=== PATIENT | born 1965 ===

== ENCOUNTER 2024-12-13 15:10 | Outpatient (AMB) | payer OTHER, SELFPAY ==
--- NOTE | 2024-12-13 15:09 | MHC.OFFVIS ---
Vital Signs 12/13/24 15:11 Height 5 ft 5 in Weight 257 lb 15.053 oz BMI 42.9 BP 130/60 Blood Pressure Location Lt brachial Position Sitting Pulse 63 Pulse Source Pulse Oximeter Pulse Oximetry (%) 93 Oxygen Delivery Method Room Air Intake Visit Reasons: Dyspnea Insole And Outsole Splitter Required: No Accompanied by: Self / Same As Patient Allergies No Known Allergies Allergy (Verified 12/13/24 15:12) HPI Comments Details: The patient is here for pulmonary evaluation. The patient overall has been doing well. She has increased cardiovascular risk factors and she was diagnosis of the apnea. The patient does have some daytime drowsiness. [place] score is elevated /. The patient did have a home sleep study which I personally reviewed demonstrating mild sleep apnea with an AHI about 9.8 events an hour. He did desaturate down to 80% and she spent about 6.5 minutes below 88%. The patient does qualify for CPAP specially with the significant cardiovascular risk factors. Although the patient is reluctant to use CPAP at this time. The patient does have also some I have diabetes and she was started on GLP 1 initially with Ozempic and now she is taking Mounjaro. She is working closely with the diet to decrease weight with the hopes that we can improve her underlying sleep apnea. I am hopeful though we can repeat an overnight oximetry in the next few months when she loses additional weight and we can see if she has any evidence of any hypoxia specially with positional therapy. The patient also is participating in the lung cancer screening program. She had a CAT scan in September 2024 and also did personally review that CAT scan and also the CAT scan from 2023 in 2022. It appears that she has some lymphadenopathy. Mediastinal lymphadenopathy both in the AP window and also in the anterior mediastinal area. Her largest lymph node in the AP window was measuring around 60 mm in size back in 2022 and now about 14 mm in size. There appears to be fairly normal in appearance. Follicles are present. No evidence of any parenchymal disease. 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 She does have a cough specially as she has got back from her trip to [place]. If her cough continues she can always call and we can do a proper allergy testing to see if this lymph nodes are reactive to something in the environment. In the meantime she will have her send repeat CAT scan in September 2025 with her low-dose CT scan that she has regularly. If she develops any constitutional symptoms she can always call we can always readdress that. The patient will have a overnight oximetry in a few months and she will follow-up in 3-4 months so we can follow-up with a review in her response to positional therapy. Depending on her response in the results we can talk about although alternative therapies. Also to note the patient did undergo pulmonary function studies that I personally reviewed she only has a very mild diffusion impairment otherwise no evidence of any obstructive nor restrictive ventilatory defects. [facility] Medical History (Updated 12/14/24 @ 22:23 by Jorge Dumont MD) Lymphadenopathy, mediastinal Pulmonary nodules ARLETTE (obstructive sleep apnea) Social History (Updated 12/13/24 @ 15:14 by Carol Lua CMA) Patient Tobacco Use Status: Former Tobacco user Review of Systems Const Reports daytime sleepiness and Reports snoring Eyes Reports no additional complaints ENT Reports nasal congestion Card Denies chest pain and Reports dyspnea on exertion Resp Reports cough, Reports dyspnea on exertion and Reports snoring GI Reports abdominal pain Musc Reports no additional complaints Skin/Breast Denies rash Neuro Reports no additional complaints Stephan/Lymph Reports no additional complaints Physical Exam Vital Signs: Last Vital Signs Pulse 63 12/13/24 15:11 BP 130/60 12/13/24 15:11 Pulse Ox 93 12/13/24 15:11 Oxygen Delivery Method Room Air 12/13/24 15:11 BMI result Body Mass Index 42.9 Const General: comfortable HEENT Head: Yes normocephalic Neck Neck: Yes supple Chest Chest palpation & inspection: normal inspection of the chest Resp Effort & Inspection: normal respiratory effort Auscultation: clear to auscultation bilaterally Cardio Heart sounds: S1 normal heart sound present and S2 normal heart sound present GI Palpation (GI): Soft to palpation Skin General skin exam: no rashes or lesions noted Extrem General: Yes no clubbing, cyanosis or edema Assessment & Plan Assessment & Plan (1) ARLETTE (obstructive sleep apnea): Code(s): G47.33 - Obstructive sleep apnea (adult) (pediatric) Category: Medical (2) Pulmonary nodules: Code(s): R91.8 - Other nonspecific abnormal finding of lung field Category: Medical (3) Lymphadenopathy, mediastinal: Code(s): R59.0 - Localized enlarged lymph nodes Category: Medical Plan Declined PAP therapy start positional therapy consider oral mandibular therapy weight management overnight oximetry in 2-3 months on RA F/U 4 months Orders: Orders Overnight Pulse Oximetry 2 Months R59.0 - Localized enlarged lymph nodes Coding Level of Care Code New Pt Level 4 (17731) Diagnoses ARLETTE (obstructive sleep apnea) G47.33 Pulmonary nodules R91.8 Lymphadenopathy, mediastinal R59.0 Time Spent (min) 40
[2024-12-13 15:11] VITALS: BP 130/60; PULSE 63; O2SAT 93; BMI 42.9
--- OUTSIDE RECORDS SUMMARY | 2024-12-13 15:13 | XMS_ITS | Clinical Summary ---
Author Organization [facility] [address] [facility] Address [address] [place] [address] Phone Care Team Providers Care Rv Mechanic Name Role Phone YassineziggyOlivia Biggs DO Primary Care Pro vider Allergies No known active allergies Medications Ozempic 0.25 mg or 0.5 mg (2 mg/3 mL) injection pen INJECT 0.25 MG SUBCUTANEOUS WEEKLY 28 DAYS 5 Active atorvastatin (LIPITOR) 20 mg tablet Take 1 tablet (20 mg total) by mouth 1 (one) time each day. for 90 days 5 Active triamterene-hyd roCHLOROthiazid e (MAXZIDE) 75-50 mg per tablet take 1 tablet by mouth every day in the morning for 90 days 4 Active levonorgestreL (MIRENA) 21 mcg/24hr (up to 8 yrs) 52 mg IUD 1 Device (1 each total) by intrauterine route 1 (one) time. Active semaglutide (Ozempic) 0.25 mg or 0.5 mg(2 mg/1.5 mL) injection pen Inject 0.25 mg under the skin every 7 (seven) days. Active multivitamin with minerals tablet Take 1 tablet by mouth 1 (one) time each day. Active Social History Tobacco Use Types Packs/Day Years Used Date Smoking Tobacco: Never Assessed Comments Unknown Sex and Gender Information Value Date Recorded Sex Assigned at Not on file Legal Sex Female 3:44 PM EDT Gender Identity Not on file Sexual Orientation Not on file Plan of Treatment Upcoming Encounters Date Type Department Care Team (Late st Contact Info) Description 01/09/2025 7:30 AM EDT Appointment [facility] Endoscopy [address] [place] [address] Verena Conde MD [address] [place] [id number] Health Maintenance Due Date Last Done Comments Breast Cancer Screening 1965 DTaP,Tdap,and Td Vaccines (1 - Tdap) 1985 Hepatitis B Vaccines (1 of 3 - 19+ 3-dose series) 1985 Cervical Cancer Screening: P ap Smear 08/15/1987 Pneumococcal Vaccine: 50+ Ye ars (1 of 1 - PCV) 2016 Zoster Vaccines (1 of 2) 2016 Colorectal Cancer Screening: Colonoscopy 01/03/2024 HIV Screening 01/03/2024 Hepatitis C Screening 01/03/2024 Social Influencers of Health Screening 01/03/2024 Depression Screening 03/27/2024 COVID-19 Vaccine (1 - 2023-2 5 season) 2024 Influenza Vaccine (#1) 2024 HIB Vaccines Aged Out No longer eligi ble based on patient's age to complete this topic HPV Vaccines Aged Out No longer eligi ble based on patient's age to complete this topic Hepatitis A Vaccines Aged Out No long er eligible based on patient's age to complete this topic IPV Vaccines Aged Out No longer eligi ble based on patient's age to complete this topic MMR Vaccines Aged Out No longer eligi ble based on patient's age to complete this topic Meningococcal ACWY Vaccine Aged Out N o longer eligible based on patient's age to complete this topic Meningococcal B Vaccine Aged Out No l onger eligible based on patient's age to complete this topic RSV Immunization Patients Un natalio 20 months Aged Out No longer eligible b ased on patient's age to complete this topic Varicella Vaccines Aged Out No longer eligible based on patient's age to complete this topic Insurance [facility] [place] [address] Care Teams Rv Mechanic Relationship Specialty Start Date End Date Olivia Lim DO [address] [id number] PCP - General Internal Medicine 05/23/24
== END 2024-12-13 15:46 | disposition home or self-care (01) ==
LOC: HO.HPS 15:10
PROVIDERS: PCP Internal Medicine; Referring Provider Internal Medicine; Visit Provider Hospitalist
DX: G47.33 Obstructive sleep apnea (adult) (pediatric) (principal); R91.8 Other nonspecific abnormal finding of lung field; R59.0 Localized enlarged lymph nodes
CPT/HCPCS: 99204